=== PATIENT | male | born 1935 | race Caucasian/White ===

== ENCOUNTER 2017-04-25 19:17 | Emergency (ER) | payer OTHER ==
[~2017-04-25] VITALS: Ht 185.4 cm; Wt 109.6 kg
[2017-04-25] MEDS ORDERED: SAW PALMETTO (19:27)
[2017-04-25] MEDS ORDERED: STATIN (19:27)
[2017-04-25] MEDS ORDERED: ASPI-515 PO (19:27)
[2017-04-25 19:51] LABS: PATH.CAST-FLAG NOT PRESENT; SPERM-FLAG NOT PRESENT; SRC-FLAG NOT PRESENT; XTAL-FLAG NOT PRESENT; YLC-FLAG NOT PRESENT
[2017-04-25 20:03] LABS: HEMATOCRIT 47.4 % (39.2-51.8); WHITE BLOOD COUNT 10.9 x10^3/uL (3.4-10)
[2017-04-25 20:11] LABS: ASPARTATE AMINO TRANSFERASE 22 U/L (15-37); BLOOD UREA NITROGEN 21 mg/dL (7-18)
[2017-04-25 21:50] VITALS: BP 145/72
== END 2017-04-25 22:05 | disposition home or self-care (01) ==
LOC: ED 21:00
DX: N40.1 Benign prostatic hyperplasia with lower urinary tract symptoms (principal); R33.8 Other retention of urine; E78.5 Hyperlipidemia, unspecified; M10.9 Gout, unspecified; Z79.82 Long term (current) use of aspirin
CPT/HCPCS: 36415; 51702; 80053; 81001; 85025; 99284

== ENCOUNTER 2018-01-06 23:54 | Emergency (ER) | payer OTHER ==
[~2018-01-06] VITALS: Ht 185.4 cm; Wt 110.9 kg
[~2018-01-06 23:54] MED LIST: ASPI-515 PO; SAW PALMETTO; STATIN
[2018-01-07 01:26] LABS: MICROSCOPIC AUTO
[2018-01-07 01:27] LABS: CULTURE INDICATED? YES
[2018-01-07] MEDS ORDERED: CIPROFLOXACIN 500 MG TABLET PO ONE (01:30)
[2018-01-07] MEDS ORDERED: CIPROFLOXACIN 500 MG TABLET ONE (02:00)
[2018-01-07 02:01] VITALS: BP 123/66
== END 2018-01-07 02:12 | disposition home or self-care (01) ==
LOC: ED 01-07 00:22
DX: N30.00 Acute cystitis without hematuria (principal); N40.1 Benign prostatic hyperplasia with lower urinary tract symptoms; R33.8 Other retention of urine; E78.5 Hyperlipidemia, unspecified; M10.9 Gout, unspecified; F17.200 Nicotine dependence, unspecified, uncomplicated
CPT/HCPCS: 51702; 81001; 87077; 87086; 87186; 99284

== ENCOUNTER → 2018-03-04 | Outpatient (CLI) | payer OTHER ==
[~2018-03-04] MED LIST changes: +OMNIPAQUE 350 MG/ML, 150 ML BOTTLE ONE
== END | disposition home or self-care (01) ==
LOC: CFH 09:53
PROVIDERS: ATTEND Physician Assistant
DX: N40.0 Benign prostatic hyperplasia without lower urinary tract symptoms (principal); K57.30 Diverticulosis of large intestine without perforation or abscess without bleeding; N28.1 Cyst of kidney, acquired; R91.1 Solitary pulmonary nodule
CPT/HCPCS: 74178; Q9967

== ENCOUNTER → 2018-04-17 | Outpatient (CLI) | payer OTHER ==
[~2018-04-17] MED LIST changes: -OMNIPAQUE 350 MG/ML, 150 ML BOTTLE ONE; +OMNIPAQUE 350 MG/ML, 75ML BOTTLE ONE
== END | disposition home or self-care (01) ==
LOC: CFH 08:41
PROVIDERS: ATTEND Urology
DX: R91.1 Solitary pulmonary nodule (principal)
CPT/HCPCS: 71260; Q9967

== ENCOUNTER 2019-04-13 13:08 | Outpatient (CLI) | payer MEDICARE, OTHER ==
[~2019-04-13 13:08] MED LIST changes: -OMNIPAQUE 350 MG/ML, 75ML BOTTLE ONE
== END 2019-04-13 23:59 | disposition home or self-care (01) ==
LOC: CFH 13:08
PROVIDERS: ATTEND Family Medicine
DX: R91.8 Other nonspecific abnormal finding of lung field (principal); Z87.891 Personal history of nicotine dependence; D71 Functional disorders of polymorphonuclear neutrophils
CPT/HCPCS: 71250

== ENCOUNTER → 2020-12-28 | Outpatient (CLI) | payer MEDICARE ==
[~2020-12-28] MED LIST changes: -ASPI-515 PO; +ASPI-963 PO; +LOSA50TA14 PO; +PRAV20TA2 PO; +TAMS-11 PO
[2020-12-28 09:29] LABS: MICROSCOPIC NOT IND
[2020-12-28 09:42] LABS: ALANINE AMINOTRANSFERASE 28 U/L (12-78); ALBUMIN 3.6 g/dL (3.4-5.0); ANION GAP 6 mmol/L (5-15); CALCIUM 8.6 mg/dL (8.5-10.1); CHLORIDE 112 mmol/L (98-107)
[2020-12-28 09:45] LABS: ALKALINE PHOSPHATASE 86 U/L (45-117); BILIRUBIN,TOTAL 0.4 mg/dL (0.2-1.0); CREATININE 0.96 mg/dL (0.7-1.3)
== END | disposition home or self-care (01) ==
LOC: STAR 08:24
PROVIDERS: ATTEND Urology
DX: Z01.818 Encounter for other preprocedural examination (principal); N40.1 Benign prostatic hyperplasia with lower urinary tract symptoms
CPT/HCPCS: 36415; 80053; 81003; 87086; 93005

== ENCOUNTER 2021-01-04 08:22 | Observation (INO) | payer MEDICARE ==
[~2021-01-04] VITALS: Ht 185.4 cm; Wt 103.1 kg
[2021-01-04] MEDS ORDERED: CHLORHEXIDINE 15 ML UDC ONE (08:37)
[2021-01-04] MEDS ORDERED: LACTATED RINGERS 1,000 ML IV SCH (09:00)
[2021-01-04] MEDS ORDERED: CHLORHEXIDINE 15 ML UDC PO ONE (09:00)
[2021-01-04] MEDS ORDERED: ONDANSETRON 2MG/ML, 2ML ONE (09:27)
[2021-01-04] MEDS ORDERED: ROCURONIUM 10 MG/ML,10ML ONE (09:27)
[2021-01-04] MEDS ORDERED: PROPOFOL 10 MG/ML, 20ML ONE (09:27)
[2021-01-04] MEDS ORDERED: CEFAZOLIN 1,000 MG ONE (09:27)
[2021-01-04] MEDS ORDERED: NEOSTIGMINE 1 MG/ML, 10ML ONE (09:27)
[2021-01-04] MEDS ORDERED: DEXAMETHASONE 4 MG/ML, 1ML ONE (09:27)
[2021-01-04] MEDS ORDERED: SUCCINYLCHOLINE 20 MG/ML, 10ML ONE (09:27)
[2021-01-04] MEDS ORDERED: GLYCOPYRROLATE 0.2MG/1ML, 5ML ONE (09:27)
[2021-01-04] MEDS ORDERED: PROMETHAZINE 25 MG/ML, 1ML IVPush PRN (09:30)
[2021-01-04] MEDS ORDERED: HYDROcodone/APAP 7.5-325MG/15ML UDC PO PRN (09:30)
[2021-01-04] MEDS ORDERED: HYDROmorphone 1 MG/ML, 1ML INJ IVPush PRN (09:30)
[2021-01-04] MEDS ORDERED: ONDANSETRON 2MG/ML, 2ML IVPush PRN (09:30)
[2021-01-04] MEDS ORDERED: OXYcodone 5 MG/5 ML ORAL.SOL UDC PO PRN (09:30)
[2021-01-04] MEDS ORDERED: MEPERIDINE/PF 25MG/0.5ML IVPush PRN (09:30)
[2021-01-04] MEDS ORDERED: ONDANSETRON 2MG/ML, 2ML IV PRN (11:00)
[2021-01-04] MEDS ORDERED: HYDROcodone/APAP 5/325 TABLET PO PRN (11:00)
[2021-01-04 13:34] VITALS: BP 161/89
[2021-01-04 19:31] VITALS: BP 152/81
[2021-01-04] MEDS ORDERED: PRAVASTATIN 20 MG TABLET PO SCH (21:00)
[2021-01-05 00:27] VITALS: BP 136/78
[2021-01-05 04:22] VITALS: BP 127/63
[2021-01-05 08:55] VITALS: BP 158/64
[2021-01-05] MEDS ORDERED: TAMSULOSIN 0.4 MG CAP.ER.24H PO SCH (09:00)
[2021-01-05] MEDS ORDERED: LOSARTAN 50MG TABLET PO SCH (09:00)
[2021-01-05 13:28] VITALS: BP 136/60
== END 2021-01-05 14:20 | disposition home or self-care (01) ==
LOC: OUT 08:22 → 4NE 12:07 → OUT 22:24 → 4NE 22:24
PROVIDERS: ADMIT Urology; ATTEND Urology
DX: N40.0 Benign prostatic hyperplasia without lower urinary tract symptoms (principal); I10 Essential (primary) hypertension; Z87.891 Personal history of nicotine dependence; Z79.899 Other long term (current) drug therapy
CPT/HCPCS: 52601; 88305; G0378; J0330; J0690; J1100; J2405; J2704; J2710; J3010; J7120

== ENCOUNTER 2021-01-05 16:57 | Emergency (ER) | payer MEDICARE ==
[~2021-01-05] VITALS: Ht 185.4 cm; Wt 105.2 kg
--- NOTE | 2021-01-05 19:26 | NUR ---
health consultant note: Pt to room from lobby, ambulatory with steady gait.
--- NOTE | 2021-01-05 19:45 | NUR ---
PATIENT RESTING ON GURNEY, DENIES PAIN OR DISCOMFORT, REPORTS TURP DONE THIS AM 01/05/21 AND RELEASED TO GO HOME, AFTER TWO HOURS AT HOME PATIENT NOTICED THERE WAS NO DRAINAGE COMING FROM THE CATHETER. CATHETER IRRIGATED WITH 300ML NS. NO CLOTS NOTED. IRRIGATED WITH NO DIFFICULTY.
--- NOTE | 2021-01-05 20:38 | NUR ---
Catheter draining slightly pink tinged urine, no clots visible in drain tube. Patient given extra catheter bag, leg bag, and incentive spirometer. Offered to put leg bag on for patient and he declined at this time.
--- NOTE | 2021-01-05 21:23 | NUR ---
THIS FLOAT RN AT BEDSIDE TO DC PT FOR PRIMARY RN, ELAINE. PT VEBALIZED UNDERSTANDING TO DC INSTRUCTIONS. AMBULATORY TO [facility] STEADY GAIT. 1500 ML CLEAR/RED FLUID DRAINED FROM [facility] CATH BAG PRIOR TO PT DC.
[2021-01-05 21:24] VITALS: BP 126/82
== END 2021-01-05 21:25 | disposition home or self-care (01) ==
LOC: ED 21:00
DX: R33.9 Retention of urine, unspecified (principal); E78.5 Hyperlipidemia, unspecified
CPT/HCPCS: 51700; 99284